=== PATIENT | male | born 1945 ===

== ENCOUNTER 2019-05-28 07:13 | Day surgery (SDC) | payer OTHER | END 2019-05-28 12:00 | disposition home or self-care (01) | LOC: AMB-ENDOS 07:13 | DX: K62.89 Other specified diseases of anus and rectum (principal); K57.30 Diverticulosis of large intestine without perforation or abscess without bleeding; K64.1 Second degree hemorrhoids ==

== ENCOUNTER 2019-05-31 11:06 | Emergency (ER) | payer OTHER ==
[~2019-05-31] VITALS: Ht 190.5 cm; Wt 103.4 kg
[2019-05-31] MEDS ORDERED: ALTACE5 MG (11:45)
[2019-05-31] MEDS ORDERED: ZITHROMAX500 MG PO (15:52)
[2019-05-31] MEDS ORDERED: PEPCID AC20 MG PO (15:52)
[2019-05-31] MEDS ORDERED: LEVSIN/SL0.125 MG SL (15:52)
[2019-05-31] MEDS ORDERED: INTESTINEX680 M1 PO (15:52)
== END 2019-05-31 16:21 | disposition home or self-care (01) ==
LOC: ER 11:06
DX: R10.31 Right lower quadrant pain (principal); B96.0 Mycoplasma pneumoniae [M. pneumoniae] as the cause of diseases classified elsewhere; Z98.890 Other specified postprocedural states